=== PATIENT | male | born 1970 | race African-American/Black ===

== ENCOUNTER 2018-09-12 13:30 | Emergency (ER) | payer OTHER ==
[~2018-09-12] VITALS: Ht 175.3 cm; Wt 86.2 kg
[2018-09-12 13:40] VITALS: BP 184/110
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
[2018-09-12] MEDS ORDERED: ROBAXIN-750750 MG PO (13:48)
[2018-09-12] MEDS ORDERED: IBUPROFEN600 MG ORAL (13:48)
[2018-09-12 13:50] VITALS: BP 184/110
--- NOTE | 2018-09-12 13:50 | NUR ---
ER DISCHARGE NOTE: Patient is cleared to be discharged per ERMD, pt is aox4, on room air, with stable vital signs. pt was given dc and prescription instructions, pt was able to verbalize understanding, pt id band removed without complications. pt is able to ambulate with steady gait. pt took all belongings.
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
== END 2018-09-12 13:50 | disposition home or self-care (01) ==
LOC: EMR 13:50
DX: M54.2 Cervicalgia (principal); M54.5 Low back pain; M25.512 Pain in left shoulder; M25.511 Pain in right shoulder; I10 Essential (primary) hypertension; T14.8XXA Other injury of unspecified body region, initial encounter; V43.52XA Car driver injured in collision with other type car in traffic accident, initial encounter; Y92.410 Unspecified street and highway as the place of occurrence of the external cause
CPT/HCPCS: 99281